=== PATIENT | male | born 1955 | race Caucasian/White ===

== ENCOUNTER 2016-10-18 16:25 | Inpatient (IN) | payer BC ==
[~2016-10-18] VITALS: Ht 188 cm; Wt 128.6 kg
--- NOTE | ~2016-10-18 | ECHO ---
Transthoracic Echocardiography Report (TTE) Demographics Patient Name LAMIN MUÑOZ Date of Study 10/19/2016 Patient Number [id number] Visit Number [id number] Date of 1955 Room Number G6308 Accession Number [id number] Gender Male Age 61 year(s) Referring Megan Retana MD [employer] Paradise Escoto RDCS, Physician RVT Physician Interpreting Dana Cárdenas MD [employer] Physician Supervising Ordering Physician Dana Cárdenas MD, MD/P Nurse Stress Trimming Cutter Conclusions Contractility Score Summary Normal Left Ventricular contractility was noted. Summary The estimated left ventricular ejection fraction is 60%. Mild concentric left ventricular hypertrophy. The right atrium is severely dilated. Dilated IVC with poor inspiratory collapse consistent with elevated RA pressure. Mild tricuspid regurgitation by color Doppler. There is moderate pulmonary hypertension. The pulmonary pressure (RVSP) is 48.87 mmHg. Small to moderate size circumferential pericardial effusion. There is no echocardiographic evidence of cardiac tamponade. Procedure Type of Study TTE procedure:2D Echocardiogram. Procedure Date Date: 10/19/2016 Start: 02:10 PM Study Location: Inpatient Portable Technical Quality: Adequate visualization Indications:Atrial fibrillation. Appropriate Use Criteria: 9 Patient Status: Routine HR: 82 bpm BP: 132/71 mmHg M-Mode/2D Measurements LV Diastolic Dimension: 5.07 cm LV Systolic Dimension: 3.39 cm LV Septum Diastolic: 1 cm LV PW Diastolic: 1.05 cm AO Root Dimension: 3.5 cm Cardiac Output: 5.65 l/min AV Cusp Separation: 2.2 cm RV Diastolic Dimension: 3.77 cm LA volume: 98 ml LVOT: 1.9 cm RV Base: 3.55 cm LVOT VTI: 24.3 cm RV Mid: 2.88 cm LV Stroke volume: 68.86 ml TAPSE: 3.23 cm TDI-S': 19.7 cm/s Doppler Measurements AV Peak Velocity: 1.62 m/s MV Peak E-Wave: 0.07 m/s AV Peak Gradient: 10.5 mmHg MV Peak A-Wave: 0.08 m/s AV Mean Gradient: 7 mmHg MV E/A Ratio: 0.87 LVOT Peak Velocity: 1.18 m/s MV Deceleration Time: 194 msec TR Velocity:2.91 m/s PV Peak Velocity: 1.23 m/s TR Gradient:33.87 mmHg PV Peak Gradient: 6.05 mmHg Estimated RAP:15 mmHg Estimated PASP: 48.87 mmHg Estimated RVSP: 49 mmHg A' Lateral Velocity: 0.12 m/s E' Lateral Velocity: 0.14 m/s Findings Left Ventricle Mild concentric left ventricular hypertrophy. Right Ventricle Mildly dilated right ventricle. Left Atrium The left atrium is moderately dilated. Right Atrium The right atrium is severely dilated. Dilated IVC with poor inspiratory collapse consistent with elevated RA pressure. Mitral Valve Trivial mitral regurgitation by color Doppler. Aortic Valve Normal aortic valve structure and function. Tricuspid Valve Mild tricuspid regurgitation by color Doppler. There is moderate pulmonary hypertension. The pulmonary pressure (RVSP) is 48.87 mmHg. Pulmonic Valve Normal pulmonic valve structure and function. Pericardial Effusion Small posterior pericardial effusion. There is no echocardiographic evidence of cardiac tamponade. Miscellaneous Visualized portions of the aortic root and ascending aorta appear normal in size. Pleural Effusion No evidence of pleural effusion. Contractility Score LV regional wall motion:(0-Non visualized 1-Normal 2-Hypokinesis 3-Akinesis 4-Dyskinesis 5-Aneurysm) Signature dtt: Avi Cortez (cardio) dtd: 10/19/16 1410 Physician Self Edit
--- NOTE | ~2016-10-18 | HP ---
PATIENT'S NAME: LAMIN MUÑOZ [facility] AGE: 61 Y [address] ROOM: [address] [address] LOCATION: GPCU ADMIT DATE: 10/18/2016 History & Physical DISCHARGE DATE: FAMILY PHYSICIAN: Homero Murray MD ATTENDING PHYSICIAN: DENISHA EATON DATE OF SERVICE: ADDENDUM: The D-dimer came back elevated and the patient's right lower extremity is red and swollen and tender. It could be cellulitis but could also be a DVT over there. The elevation of D-dimer also could mean PE. The patient also still remained in atrial fibrillation with RVR, heart rate of 130. Although the patient is asymptomatic, the patient could have a PE, could have a DVT, and run the risk of having a stroke because of the atrial fibrillation with RVR. I have explained to the family member in detail and also to the patient. I spent more than 45 minutes in the room with the family back and forth multiple times to tell them about the option of using anticoagulation agents such as heparin drip or Lovenox subcu. I told them about the benefits and risks, where the risk, the most common one is the bleeding, and could happen anywhere, but the benefit of using the anticoagulation here will be to prevent stroke, to prevent the heart from forming cardiac thrombus leading to embolus, to treat if he had a DVT on the leg, could treat PE if he had it. I explained all these benefits and risks to the family member for long time. While I left the shift last night, the patient's told me that she would like to think about it and talk to the patient and then give answer to the nurse. I came back here today for followup and from the nurse, the patient's family member decided not to go for the heparin drip or Lovenox subcutaneous. Therefore, the patient was put only on the Lovenox subcu for DVT prophylaxis. Today there will be a CT pulmonary angiogram performed to rule PE and also will have a venous duplex ultrasound of the lower extremities to rule out DVT. Further plan will depend on clinical course. DENISHA EATON MD CC/modl /[id number] D: [id number] T: [id number] HISTORY & PHYSICAL
--- NOTE | ~2016-10-18 | HP ---
PATIENT'S NAME: LAMIN MUÑOZ [facility] AGE: 61 Y [address] ROOM: [address] [address] [facility] ADMIT DATE: 10/18/2016 History & Physical DISCHARGE DATE: FAMILY PHYSICIAN: Homero Murray MD ATTENDING PHYSICIAN: DENISHA EATON DATE OF SERVICE: CHIEF COMPLAINT: Right lower extremity swelling, pain, and redness as well as dyspnea on exertion, decreased appetite, nausea, and vomiting. HISTORY OF PRESENT ILLNESS: This is a 61-year-old male who rarely sees a physician, who says that for the last 4 weeks he has been having this pain and swelling and redness in his right lower extremity, and for the last 7 days, he has been feeling chills, but he did not take temperature at home. For the last 4 years, he has been having this shortness of breath initially on exertion; right now, he is also at rest. He also has an itchy spot in his abdomen for the last 2 weeks, and also for the last 2 days, he has been having some nausea and vomiting, and his abdomen, he also says, has been becoming more distended for the last few days, but he denies any abdominal pain or confusion or headache. He is also a chronic alcohol drinker. He drinks about multiple bottles of wine daily for the last 6 years. His last drink was last Tuesday which was 3 days ago. Today, the patient went to GI clinic for evaluation because he had seen a PA in his home town for all this problem and the PA gave him torsemide which he took about 4 days, but it made him urinate a lot, and he did not like it, so he stopped taking that. His last dose was yesterday. Because his symptoms did not improve, he came here today to our hospital to the GI Clinic for evaluation. From GI Clinic due to his multiple medical problems, the patient was sent here for further care. REVIEW OF SYSTEMS: As mentioned in history of present illness. All other systems were reviewed and were negative except for those mentioned in history of present illness. PAST MEDICAL HISTORY: 1. Hyperlipidemia. 2. Hard of hearing bilaterally. ALLERGIES: NO KNOWN DRUG ALLERGIES. HOME MEDICATIONS: 1. Aspirin. PATIENT'S NAME: LAMIN MUÑOZ [facility] AGE: 61 Y [address] ROOM: G6308 [place], [place] [address] [facility] ADMIT DATE: 10/18/2016 History & Physical DISCHARGE DATE: FAMILY PHYSICIAN: Homero Murray MD ATTENDING PHYSICIAN: DENISHA EATON 2. Torsemide. 3. Simvastatin. 4. Unknown dose has to be addressed with the pharmacy. SOCIAL HISTORY: The patient is a former cigarette smoker where he quit about 4 years ago. He used to smoke about 1 pack per day for roughly 30 years. The patient is an active alcohol user. He drinks about multiple bottles of wine daily for the last 6 years. The patient denies any alcohol withdrawal in the past. The patient has used illegal drugs in the past, last time he used was when he was very young. He has been sober since many years ago. He said he has inhaled marijuana, and he might have used cocaine or meth, but he is not sure. FAMILY HISTORY: The patient's father from myocardial infarction at age 63. The patient's mother has dementia and from old age. PAST SURGICAL HISTORY: The patient denies any surgery. PHYSICAL EXAMINATION: VITAL SIGNS: At the time of my dictation, temperature was 98.8, heart rate was 102, respirations 20, blood pressure 153/90, saturation 98%, this was on 1 L nasal cannula. GENERAL APPEARANCE: Alert and oriented x3. The patient looks mildly uncomfortable. The patient looks acutely ill. HEENT: Pupils are equally round and reactive to light. Extraocular muscles are intact. Anicteric sclerae. Nasal turbinates are normal bilaterally. Dry oral mucosa. NECK: No JVD. CARDIOVASCULAR: Irregularly irregular rate. Tachycardic. No murmur, no rubs, no gallops. RESPIRATORY: Clear to auscultation. Chest wall nontender to palpation. No rales, no rhonchi, no wheezing, no crackles. ABDOMEN: Obese, soft, distended, bowel sounds present, nontender. No mass. Bowel sounds are present. No abdominal rigidity. Once again, nontender. EXTREMITIES: No edema in upper or lower extremities. He does have erythema and swelling and pain on palpation on the right lower extremity. SKIN: Erythema in the right lower extremity. No cyanosis. No ulcer. NEUROLOGICAL: Grossly nonfocal. LABORATORY DATA: Lactic acid 3.3, CPK 385. Troponin less than 0.04. ProBNP 582. White blood cell 12.3, hemoglobin 13.2, hematocrit 38, MCV 101.6, platelets 197. Glucose 113, BUN 10, creatinine 1.3. Sodium 136, potassium 3.1, chloride 94, CO2 of PATIENT'S NAME: LAMIN MUÑOZ [facility] AGE: 61 Y [address] ROOM: [place] [address] LOCATION: GPCU ADMIT DATE: 10/18/2016 History & Physical DISCHARGE DATE: FAMILY PHYSICIAN: Homero Murray MD ATTENDING PHYSICIAN: DENISHA EATON 29, calcium 8.0, total protein 8.5, albumin 2.9. AST 170, ALT 35, alkaline phosphatase 303. Total bilirubin 4.0, direct bilirubin 1.5. Magnesium 1.3. GFR of 56, anion gap 16.1. INR 1.33, PTT 31. A1c pending. Urinalysis show 25 leukocytes, negative nitrite, rare bacteria and 2-5 white blood cells. CK- MB 1.3. Procalcitonin 0.41. D-dimer is pending. IMAGING STUDY: Chest x-ray on admission show normal chest x-ray. PROGRESSIVE CARE UNIT COURSE: Upon arrival to the progressive care unit, the patient developed atrial fibrillation with rapid ventricular response. Heart rate was in the 180s, blood pressure was in the 140s systolic. The patient denies any chest pain. Chronically, he has a little bit of shortness of breath, but this has not worsened right now. No confusion. The patient was given Cardizem bolus followed by drip. Also required a few doses of IV Lopressor push 5 mg. Heart rate remained in the 120s. Blood pressure is still in the 140s. The patient still denies any chest pain. For followup plan, please refer to the assessment and plan. ASSESSMENT AND PLAN: 1. Regarding his sepsis secondary to right lower extremity cellulitis: Blood culture x2. Urine culture. Antibiotic coverage with IV Linezolid and also IV Zosyn. Start now, dosing per pharmacy. Pain control with IV morphine p.r.n. Further plan depends on clinical course. I will also get a venous duplex ultrasound to rule out a deep venous thrombosis. I ordered the D-dimer, is pending. If it is high, can get a CT pulmonary angiogram to confirm pulmonary embolism. If it is negative, then worry about DVT in that leg, then I will give him empirically subcu Lovenox twice a day for coverage until deep venous thrombosis is ruled out. Further plan will depend on clinical course. 2. Regarding his atrial fibrillation with rapid ventricular response, secondary to sepsis from right lower extremity cellulitis: Continue current Cardizem drip. Normal saline for hydration in the setting of sepsis with a normal saline at 75 mL/hour maintenance. I will watch his vital signs closely. I will get an echo in the morning. Cycle cardiac enzymes. Consult Cardiology in the morning for atrial fibrillation with rapid ventricular response management. 3. Regarding his transaminitis: I will get a complete abdominal ultrasound in the morning to evaluate the liver. In addition, I will check a hepatitis B and C panel. I will also check ammonia level. Depending on the ultrasound finding, GI can be consulted. The patient is a heavy alcohol drinker. He may require EGD to screen for varices. 4. Regarding his dyspnea: The patient is not hypoxic on room air. He is saturating more than 94% on room air. Chest x-ray looks clean. This PATIENT'S NAME: LAMIN MUÑOZ [facility] AGE: 61 Y [address] ROOM: [place] [address] LOC[facility] ADMIT DATE: 10/18/2016 History & Physical DISCHARGE DATE: FAMILY PHYSICIAN: Homero Murray MD ATTENDING PHYSICIAN: DENISHA EATON could be from pulmonary hypertension or from being a smoker or from obstructive sleep apnea or from some degree of heart failure from the pulmonary hypertension from cor pulmonale. Either way, keeping on the oxygen right now and also nasal cannula if needed and also get an echo tomorrow for better evaluation. 5. Regarding his alcohol use disorder with a high risk of alcohol withdrawal: The patient is currently withdrawing with asterixis on examination. I will start on the CIWA protocol. 6. Regarding his deep venous thrombosis prophylaxis: The patient currently will be on subcu Lovenox. 7. Regarding his code status: He is a full code. Time spent in care on the day of admission 70 minutes where 30 minutes was spent on chart review and interview and also on the physical examination. 40 minutes was spent on calling the on-call cardiology for the consult tomorrow and also by addressing all the questions and concerns that the patient had and also by going over the plan of care with the patient and his family members, and I answered all the questions to their satisfaction. This also includes a time in care for the control of the atrial fibrillation with RVR. Further plan will depend on clinical course. MD CARMELA CAMARENA/paul /[id number] P D: 155 T: 049 HISTORY & PHYSICAL
--- NOTE | ~2016-10-18 | DS ---
PATIENT'S NAME: LAMIN MUÑOZ [facility] AGE: 61 Y [address] ROOM: [address] [address] LOCATION: GPCU ADMIT DATE: 10/18/2016 Discharge Summary DISCHARGE DATE: 10/24/2016 FAMILY PHYSICIAN: Homero Murray MD ATTENDING PHYSICIAN: Denis Guzman PRINCIPAL DIAGNOSES: 1. Atrial fibrillation with rapid ventricular rate. 2. Acute hypoxic respiratory failure. 3. Diastolic congestive heart failure, decompensated. 4. Pulmonary hypertension. 5. Lower extremity cellulitis. 6. Chronic liver disease. 7. Alcohol abuse. BRIEF HOSPITAL COURSE: Please refer to the admission H and P for a detailed history on an initial presentation. The patient admitted for evaluation and workup of AFib/RVR as well as sepsis from right lower extremity cellulitis. The patient was seen by Cardiology Service promptly and medications were titrated to better rate control and rhythm control. The patient throughout his hospital stay had mostly maintained a sinus rhythm with a controlled rate. The patient also had concern for chronic liver disease and was evaluated by Gastroenterology team and workup included a possible diagnosis of hemochromatosis with transferrin saturation of 73% noted on preliminary work. Final genetic testing is pending. The patient is to follow up with GI Clinic for continued workup of his liver disease. In addition, the patient was found to have shortness of breath symptoms and an echocardiogram showed significant pulmonary hypertension which was deemed to be decompensated diastolic CHF and was diuresed during his hospital stay with significant improvement with his hypoxic respiratory failure, and the patient is on room air during the daytime. The patient also has an overnight trend ox and for that the patient would need 2 L of oxygen per nasal cannula overnight for now. The patient will be discharged on Lasix p.o. 40 mg from here on and he will follow up with Cardiology, Dr. Cortez's office, in 2 weeks. The patient had been started on intermediate frame tender anticoagulation with Xarelto as well. The patient had a CT scan of the chest, abdomen, and pelvis done, which did not show significant findings including gross signs of scarring in the liver to suggest cirrhosis. PHYSICAL EXAMINATION: VITAL SIGNS: Stable. Afebrile. GENERAL: The patient is awake, alert, and oriented x3, in no acute distress. LUNGS: Clear to auscultation bilaterally. HEART: S2, S2, regular rate and rhythm. ABDOMEN: Soft, nontender, nondistended. EXTREMITIES: Without edema. Right lower extremity edema significantly improved. PATIENT'S NAME: LAMIN MUÑOZ [facility] AGE: 61 Y [address] ROOM: [address] [address] LOCATION: GPCU ADMIT DATE: 10/18/2016 Discharge Summary DISCHARGE DATE: 10/24/2016 FAMILY PHYSICIAN: Homero Murray MD ATTENDING PHYSICIAN: Denis Guzman MEDICATIONS: Per MAR includin. Xarelto 20 mg daily. 2. Keflex 500 b.i.d. for 4 more days. 3. Lasix 40 mg p.o. daily. 4. Sotalol 80 mg b.i.d. 5. Cardizem 120 mg daily. DISPOSITION: The patient is discharged home, he will follow up with GI, Cardiology, and primary care physician in the next 1 to 2 weeks. Greater than 30 minutes were spent in discharge planning and facilitating. MD JAYME NAVARRETE/paul /[id number] d: 10/25/16 0104 t: 11/01/16 1510, DISCHARGE SUMMARY
--- NOTE | ~2016-10-18 | ENPV ---
Vascular Lower Extremities DVT Study Procedure Demographics Patient Name LAMIN MUÑOZ Date of Study 10/19/2016 Patient Number [id number] Gender Male Date of 1955 Age 61 Visit Number [id number] Height 74 Accession Number [id number] Weight 267.01 Referring Terri Howell MD Physician Megan Retana MD Physician Physician Ordering Physician Megan Retana MD [employer] Payable Administrator Odilon Jeffrey, T Conclusions Summary No evidence of deep vein thrombosis in bilateral lower extremities. Procedure Type of Study: Veins:Lower Extremities DVT Study, Venous Duplex Lower Extremity Bilateral. Indications for Study:Pain, edema, discoloration and Bilateral lower extremity edema. Appropriate Use Criteria:8 Patient Status:Routine. Study Location:Inpatient Portable. Technical Quality:Adequate visualization. Velocities are measured in cm/s ; Diameters are measured in cm Right Lower Extremities DVT Study Measurements Right 2D and Doppler Measurements + + + + +------+------+ + !Location !Visualized!Compressibility!Thrombosis!Signal!Reflux!Reflux ! ! ! ! ! ! ! !(sec) ! + + + + +------+------+ + !GSV Thigh !Yes !Yes !None !Phasic!No ! ! + + + + +------+------+ + !Common !Yes !Yes !None !Phasic!No ! ! !Femoral ! ! ! ! ! ! ! + + + + +------+------+ + !Prox !Yes !Yes !None !Phasic!No ! ! !Femoral ! ! ! ! ! ! ! + + + + +------+------+ + !Mid Femoral!Yes !Yes !None !Phasic!No ! ! + + + + +------+------+ + !Dist !Yes !Yes !None !Phasic!No ! ! !Femoral ! ! ! ! ! ! ! + + + + +------+------+ + !Popliteal !Yes !Yes !None !Phasic!No ! ! + + + + +------+------+ + !Gastroc !Yes !Yes !None ! ! ! ! + + + + +------+------+ + !PTV !Yes !Yes !None ! ! ! ! + + + + +------+------+ + !Peroneal !Yes !Yes !None ! ! ! ! + + + + +------+------+ + Left Lower Extremities DVT Study Measurements Left 2D and Doppler Measurements + + + + +------+------+ + !Location !Visualized!Compressibility!Thrombosis!Signal!Reflux!Reflux ! ! ! ! ! ! ! !(sec) ! + + + + +------+------+ + !GSV Thigh !Yes !Yes !None !Phasic!No ! ! + + + + +------+------+ + !Common !Yes !Yes !None !Phasic!No ! ! !Femoral ! ! ! ! ! ! ! + + + + +------+------+ + !Prox !Yes !Yes !None !Phasic!No ! ! !Femoral ! ! ! ! ! ! ! + + + + +------+------+ + !Mid Femoral!Yes !Yes !None !Phasic!No ! ! + + + + +------+------+ + !Dist !Yes !Yes !None !Phasic!No ! ! !Femoral ! ! ! ! ! ! ! + + + + +------+------+ + !Popliteal !Yes !Yes !None !Phasic!No ! ! + + + + +------+------+ + !Gastroc !Yes !Yes !None ! ! ! ! + + + + +------+------+ + !PTV !Yes !Yes !None ! ! ! ! + + + + +------+------+ + !Peroneal !Yes !Yes !None ! ! ! ! + + + + +------+------+ + Signature dtt: SUMIT MARIN dtd: 10/19/16 0729 Physician Self Maria Elena
--- NOTE | ~2016-10-18 | PUL ---
PATIENT'S NAME: LAMIN MUÑOZ [facility] AGE: 61 Y [address] ROOM: [address] [address] LOCATION: GPCU ADMIT DATE: 10/18/2016 Pulmonary DISCHARGE DATE: 10/24/2016 FAMILY PHYSICIAN: Homero Murray MD ATTENDING PHYSICIAN: Denis Guzman NAME OF PROCEDURE: Overnight Trend Oximetry DATE OF PROCEDURE: October 23 to October 24, 2016 REASON FOR EXAM: Nocturnal hypoxemia RESULTS: The total recording time was 8 hours, 48 minutes, and 4 seconds. Total valid sampling time was 8 hours and 20 minutes. The highest pulse was 132 beats per minute, the lowest pulse was 58, and the mean pulse was 63 beats per minute. The highest SpO2 was 94%, the lowest SpO2 was 80%, with mean SpO2 of 87.5%. Time total time spent below 89% was 5 hours 29 minutes and 16 seconds which is 65. 9% of the total valid sampling time. The desaturation event index was 13.3. PHYSICIAN INTERPRETATION: The patient meets Medicare criteria for nighttime oxygen. The index is 13.3, which is could be indicative of obstructive sleep apnea. Clinical correlation is recommended. MD JUAN OLSON/rob /[id number] dtt: 10/31/16 0910 , Luis Manuel Calderon. dtd: 10/28/16 1412
--- NOTE | ~2016-10-18 | CON ---
PATIENT'S NAME: LAMIN MUÑOZ [facility] AGE: 61 Y [address] ROOM: [place] [address] LOCATION: GPCU ADMIT DATE: 10/18/2016 Consultation DISCHARGE DATE: FAMILY PHYSICIAN: Homero Murray MD ATTENDING PHYSICIAN: DENISHA EATON DATE OF CONSULTATION: 10/19/2016 REFERRING PHYSICIAN: Avi Cortez MD HISTORY OF PRESENT ILLNESS: This is a 61-year-old gentleman, who was admitted with an elevated D-dimer and right lower extremity cellulitis. He also was noted to be in atrial fibrillation with rapid ventricular response. He had been feeling poorly over the past several days with a decreased appetite, right leg cellulitis, and increased edema. On admission, his lactate was 3.3 and direct bilirubin was 1.8 with an indirect bilirubin of 12.9. He was also found to have an elevated ammonia level. He had a CT done, which was negative for PE, but he did have nodular appearances noted on his spleen with other small nodularities in the abdomen. An ultrasound of the abdomen showed that he had a fatty liver and his gallbladder had sludge. He does have a history of chronic alcohol drinker with multiple bottles of wine daily for the past six years. He reports his last drink was three days ago. He currently denies feeling any palpitations. He does not have a history of paroxysmal atrial fibrillation, so this is a new diagnosis. He complains of some intermittent shortness of breath. He denies presyncope or syncopal episodes. He denies orthopnea or PND. His reports that he does snore loudly, and sometimes stops breathing. There is no report of exertional chest heaviness or tightness. PAST MEDICAL HISTORY: 1. Hypercholesterolemia. 2. Arthritis of the hands. 3. Macular degeneration. 4. Glaucoma. 5. New diagnosis of cirrhosis. 6. Pulmonary hypertension. 7. Alcohol abuse. 8. Remote history of smoking. PAST SURGICAL HISTORY: None. ALLERGIES: NONE TO MEDICATION. HOME MEDICATIONS: PATIENT'S NAME: LAMIN MUÑOZ [facility] AGE: 61 Y [address] ROOM: [place] [address] LOCATION: GPCU ADMIT DATE: 10/18/2016 Consultation DISCHARGE DATE: FAMILY PHYSICIAN: Homero Murray MD ATTENDING PHYSICIAN: DENISHA EATON 1. Aspirin 325 mg daily. 2. Lutein 20 mg daily. 3. Simvastatin 40 mg daily. 4. Demadex 20 mg daily. SOCIAL HISTORY: He is . He quit smoking in 2012. He had smoked over a pack of cigarettes a day for 30 years. FAMILY HISTORY: Father had myocardial infarction at the age of 63. Mother had dementia. REVIEW OF SYSTEMS: HEAD: No history of headache. EYES: He has problems with macular degeneration and glaucoma. EARS: It appears he is a little hard of hearing. NOSE: No epistaxis or rhinorrhea. MOUTH: No gingival bleeding. He has a full set of dentures. PULMONARY: He denies cough or hemoptysis. GASTROINTESTINAL: He has upper abdominal hernia. No problems with nausea or vomiting. GENITOURINARY: Negative for urinary frequency unless he is taking Demadex. MUSCULOSKELETAL: He has arthritis of the hands. NEUROLOGIC: He denies neuropathy. PSYCHIATRIC: He does have problems with depression. He does use alcohol chronically. PHYSICAL EXAMINATION: VITAL SIGNS: Blood pressure is 106/53 to 124/65, heart rate now is 87 and he is in a regular sinus rhythm, and temperature is 98.6. His height is 6 feet 2 inches tall and weight is 267 pounds. GENERAL: He is alert and answers questions appropriately. HEENT: Pupils were equal. Conjunctiva is reddened. He has symmetrical facial expression. His speech is clear. CARDIOVASCULAR: Regular with a normal S1 and S2. No carotid bruits were noted. PULMONARY: Lung sounds were clear without evidence of wheezes, rales, or rhonchi. ABDOMEN: Rounded and obese, but soft. Bowel sounds are present. EXTREMITIES: Showed trace of peripheral edema. Right leg is wrapped currently. DIAGNOSTIC STUDIES: Telemetry is showing non-sustained ventricular tachycardia and paroxysmal atrial fibrillation. PATIENT'S NAME: LAMIN MUÑOZ [facility] AGE: 61 Y [address] ROOM: [address] [address] [facility] ADMIT DATE: 10/18/2016 Consultation DISCHARGE DATE: FAMILY PHYSICIAN: Homero Murray MD ATTENDING PHYSICIAN: DENISHA EATON LABORATORY DATA: Ammonia was 77. Cardiac enzymes are negative. White count is 12.6, hemoglobin is 12.6, and platelets are 183. Glucose was 124, BUN was 11, creatinine was 1.2, sodium was 138, potassium was 3.1, magnesium was 1.9, and hemoglobin A1c was 5.4. Cholesterol of 164, triglycerides of 156, HDL of 33, and LDL of 100. UA is normal except for urobilinogen, is 4. ASSESSMENT AND PLAN: 1. Paroxysmal atrial fibrillation, now in a normal sinus rhythm. We will await the echocardiogram to see what his EF is. At that time, we will decide what antiarrhythmic to start. 2. Hypokalemia with non-sustained ventricular tachycardia. We will replace with electrolytes. 3. Cellulitis per hospitalist. 4. Fatigue with chronic snoring. We will see what his pulmonary pressures are. The assessment and plan, history of present illness, and physical exam are per Dr. Cortez. JUANCARLOS GARCIA APRN FOR MD STEVEN NEVAREZ/modl /[id number] d: 10/21/162056 t: 11/03/160, CONSULTATION REPORT
[2016-10-18 17:37] LABS: BASOPHIL # 0.1 K/uL (0.0-0.2); BASOPHIL % 0.5 %; HEMOGLOBIN 13.2 g/dL (11.0-16.0); IMMATURE GRANULOCYTE % 0.3 %; LYMPHOCYTE # 1.7 K/uL (0.8-4.0); LYMPHOCYTE % 14.2 %; MCH 35.3 pg (27.0-34.0); MCHC 34.7 gm/dL (32.0-36.5); MCV 101.6 fl (83.0-98.0); MONOCYTE # 1.2 K/uL (0.0-1.0); MPV 10.2 fl (9.4-12.4); NEUTROPHIL # (ANC) 9.2 K/uL (1.4-9.0); NRBC % 0 /100WBC (0-0.00); PLATELET COUNT 197 K/uL (150-450); RBC 3.74 M/uL (3.50-5.50); RDW-CV 15.4 % (11.9-14.6); WBC 12.3 K/uL (4.0-11.0)
[2016-10-18] MEDS ORDERED: ASPIRIN325 MG PO (17:41)
[2016-10-18] MEDS ORDERED: ZOCOR40 MG PO (17:42)
[2016-10-18 17:44] LABS: INR - (THERAPEUTIC) 1.33 (0.92-1.07); PTT 31 SECONDS (25-32)
[2016-10-18 17:56] LABS: BLOOD URINE NEGATIVE /UL (NEGATIVE); COLOR URINE YELLOW (YELLOW); GLUCOSE URINE NEGATIVE (NEGATIVE); KETONE URINE NEGATIVE (NEGATIVE); LEUKOCYTES URINE 25 /UL (NEGATIVE); NITRITE URINE NEGATIVE (NEGATIVE); PROTEIN URINE NEGATIVE (NEGATIVE); TURBIDITY URINE CLEAR (CLEAR); UROBILINOGEN URINE 4 mg/dL (NORMAL)
[2016-10-18 18:00] LABS: ALBUMIN 2.9 gm/dL (3.5-5.0); ALK PHOS 303 IU/L (33-138); ALT 35 IU/L (12-78); ANION GAP 16.1 (10.0-19.0); AST 170 IU/L (10-40); BLOOD UREA NITROGEN 10 mg/dL (6-24); CHLORIDE 94 mMol/L (96-110); CO2 29 mMol/L (22-32); CPK 385 IU/L (35-332); CREATININE 1.3 mg/dL (0.6-1.3); ESTIMATED GFR (MDRD EQUATION) 56; MAGNESIUM 1.3 mg/dL (1.8-2.6); POTASSIUM 3.1 mMol/L (3.7-5.1); SODIUM 136 mMol/L (135-145); TOTAL PROTEIN 8.5 g/dL (6.0-8.4)
[2016-10-18 18:05] LABS: BACTERIA URINE RARE (NEGATIVE); EPITHELIAL URINE 0-2 #/HPF (NEGATIVE); RBC URINE NEGATIVE #/HPF (NEGATIVE)
[2016-10-18 21:19] LABS: CPK 432 IU/L (35-332)
[2016-10-19 02:21] LABS: HEMATOCRIT 36.2 % (37.0-53.0); HEMOGLOBIN 12.6 g/dL (11.0-16.0); MCH 35.6 pg (27.0-34.0); MCHC 34.8 gm/dL (32.0-36.5); MCV 102.3 fl (83.0-98.0); MPV 10.2 fl (9.4-12.4); RBC 3.54 M/uL (3.50-5.50); RDW-CV 15.4 % (11.9-14.6); WBC 12.6 K/uL (4.0-11.0)
[2016-10-19 02:31] LABS: INR - (THERAPEUTIC) 1.34 (0.92-1.07); PROTIME 14.1 SECONDS (9.8-11.4)
[2016-10-19 02:39] LABS: CPK 426 IU/L (35-332)
[2016-10-19 03:25] LABS: ALBUMIN 2.7 gm/dL (3.5-5.0); ALK PHOS 271 IU/L (33-138); ALT 28 IU/L (12-78); ANION GAP 12.1 (10.0-19.0); AST 140 IU/L (10-40); BLOOD UREA NITROGEN 11 mg/dL (6-24); CHLORIDE 99 mMol/L (96-110); CO2 30 mMol/L (22-32); CREATININE 1.2 mg/dL (0.6-1.3); ESTIMATED GFR (MDRD EQUATION) > 60; POTASSIUM 3.1 mMol/L (3.7-5.1); SODIUM 138 mMol/L (135-145); TOTAL BILIRUBIN 4.7 mg/dL (0.0-1.5); TOTAL PROTEIN 7.9 g/dL (6.0-8.4)
[2016-10-19 09:37] LABS: CPK 420 IU/L (35-332)
[2016-10-20 04:36] LABS: BASOPHIL # 0.1 K/uL (0.0-0.2); BASOPHIL % 0.6 %; EOSINOPHIL # 0.1 K/uL (0.0-0.5); EOSINOPHIL % 0.6 %; HEMATOCRIT 34.5 % (37.0-53.0); HEMOGLOBIN 11.6 g/dL (11.0-16.0); IMMATURE GRANULOCYTE % 0.4 %; LYMPHOCYTE # 1.9 K/uL (0.8-4.0); LYMPHOCYTE % 16.9 %; MCH 34.9 pg (27.0-34.0); MCHC 33.6 gm/dL (32.0-36.5); MCV 103.9 fl (83.0-98.0); MONOCYTE # 0.7 K/uL (0.0-1.0); MONOCYTE % 6.5 %; MPV 10.4 fl (9.4-12.4); NEUTROPHIL # (ANC) 8.6 K/uL (1.4-9.0); NRBC % 0 /100WBC (0-0.00); PLATELET COUNT 158 K/uL (150-450); RBC 3.32 M/uL (3.50-5.50); RDW-CV 15.3 % (11.9-14.6); WBC 11.4 K/uL (4.0-11.0)
[2016-10-20 05:01] LABS: ALBUMIN 2.5 gm/dL (3.5-5.0); ALK PHOS 251 IU/L (33-138); ANION GAP 10.1 (10.0-19.0); AST 131 IU/L (10-40); BLOOD UREA NITROGEN 13 mg/dL (6-24); CALCIUM 7.8 mg/dL (8.5-10.5); CHLORIDE 103 mMol/L (96-110); CO2 28 mMol/L (22-32); CREATININE 0.9 mg/dL (0.6-1.3); ESTIMATED GFR (MDRD EQUATION) > 60; MAGNESIUM 1.9 mg/dL (1.8-2.6); POTASSIUM 3.1 mMol/L (3.7-5.1); SODIUM 138 mMol/L (135-145); TOTAL BILIRUBIN 5.3 mg/dL (0.0-1.5); TOTAL PROTEIN 7.4 g/dL (6.0-8.4)
[2016-10-20 05:09] LABS: ALT 29 IU/L (12-78)
[2016-10-21 03:54] LABS: BASOPHIL # 0.1 K/uL (0.0-0.2); BASOPHIL % 0.7 %; EOSINOPHIL # 0.1 K/uL (0.0-0.5); EOSINOPHIL % 1.3 %; HEMOGLOBIN 11.4 g/dL (11.0-16.0); IMMATURE GRANULOCYTE % 0.4 %; LYMPHOCYTE % 17.9 %; MCH 35.2 pg (27.0-34.0); MCHC 33.5 gm/dL (32.0-36.5); MCV 104.9 fl (83.0-98.0); MONOCYTE # 0.8 K/uL (0.0-1.0); MONOCYTE % 7.2 %; MPV 10.6 fl (9.4-12.4); NEUTROPHIL % 72.5 %; NRBC % 0 /100WBC (0-0.00); PLATELET COUNT 154 K/uL (150-450); RBC 3.24 M/uL (3.50-5.50); RDW-CV 15.1 % (11.9-14.6)
[2016-10-21 04:10] LABS: ALBUMIN 2.4 gm/dL (3.5-5.0); ALK PHOS 219 IU/L (33-138); ALT 30 IU/L (12-78); ANION GAP 10.3 (10.0-19.0); AST 121 IU/L (10-40); BLOOD UREA NITROGEN 17 mg/dL (6-24); CALCIUM 7.8 mg/dL (8.5-10.5); CHLORIDE 104 mMol/L (96-110); CO2 26 mMol/L (22-32); ESTIMATED GFR (MDRD EQUATION) > 60; POTASSIUM 3.3 mMol/L (3.7-5.1); SODIUM 137 mMol/L (135-145); TOTAL BILIRUBIN 4.6 mg/dL (0.0-1.5); TOTAL PROTEIN 7.1 g/dL (6.0-8.4)
[2016-10-22 04:05] LABS: BASOPHIL # 0.1 K/uL (0.0-0.2); BASOPHIL % 0.5 %; EOSINOPHIL # 0.1 K/uL (0.0-0.5); EOSINOPHIL % 1.2 %; HEMATOCRIT 34.3 % (37.0-53.0); HEMOGLOBIN 11.6 g/dL (11.0-16.0); IMMATURE GRANULOCYTE % 0.4 %; LYMPHOCYTE # 1.8 K/uL (0.8-4.0); LYMPHOCYTE % 15.6 %; MCH 35.9 pg (27.0-34.0); MCHC 33.8 gm/dL (32.0-36.5); MCV 106.2 fl (83.0-98.0); MONOCYTE # 0.8 K/uL (0.0-1.0); MPV 10.7 fl (9.4-12.4); NEUTROPHIL # (ANC) 8.6 K/uL (1.4-9.0); NEUTROPHIL % 75.3 %; NRBC % 0.2 /100WBC (0-0.00); PLATELET COUNT 148 K/uL (150-450); RBC 3.23 M/uL (3.50-5.50); RDW-CV 15.3 % (11.9-14.6); WBC 11.4 K/uL (4.0-11.0)
[2016-10-22 04:16] LABS: ALBUMIN 2.6 gm/dL (3.5-5.0); ALK PHOS 227 IU/L (33-138); ALT 43 IU/L (12-78); ANION GAP 11.9 (10.0-19.0); AST 144 IU/L (10-40); BLOOD UREA NITROGEN 23 mg/dL (6-24); CALCIUM 8.3 mg/dL (8.5-10.5); CHLORIDE 102 mMol/L (96-110); CO2 26 mMol/L (22-32); CREATININE 1.2 mg/dL (0.6-1.3); ESTIMATED GFR (MDRD EQUATION) > 60; MAGNESIUM 2.1 mg/dL (1.8-2.6); POTASSIUM 3.9 mMol/L (3.7-5.1); SODIUM 136 mMol/L (135-145); TOTAL PROTEIN 7.8 g/dL (6.0-8.4)
[2016-10-23 03:27] LABS: BASOPHIL % 0.5 %; EOSINOPHIL # 0.2 K/uL (0.0-0.5); EOSINOPHIL % 1.7 %; IMMATURE GRANULOCYTE % 0.3 %; LYMPHOCYTE # 1.8 K/uL (0.8-4.0); LYMPHOCYTE % 20.9 %; MCH 35.4 pg (27.0-34.0); MCHC 33.3 gm/dL (32.0-36.5); MCV 106.1 fl (83.0-98.0); MONOCYTE # 0.7 K/uL (0.0-1.0); MONOCYTE % 8.3 %; MPV 10.4 fl (9.4-12.4); NEUTROPHIL % 68.3 %; NRBC % 0 /100WBC (0-0.00); PLATELET COUNT 145 K/uL (150-450); RBC 3.11 M/uL (3.50-5.50); RDW-CV 15.1 % (11.9-14.6); WBC 8.8 K/uL (4.0-11.0)
[2016-10-23 03:56] LABS: ALBUMIN 2.7 gm/dL (3.5-5.0); ALK PHOS 215 IU/L (33-138); ALT 46 IU/L (12-78); ANION GAP 12.9 (10.0-19.0); AST 144 IU/L (10-40); BLOOD UREA NITROGEN 25 mg/dL (6-24); CALCIUM 8.2 mg/dL (8.5-10.5); CHLORIDE 100 mMol/L (96-110); CO2 26 mMol/L (22-32); CREATININE 1.1 mg/dL (0.6-1.3); ESTIMATED GFR (MDRD EQUATION) > 60; POTASSIUM 3.9 mMol/L (3.7-5.1); SODIUM 135 mMol/L (135-145); TOTAL BILIRUBIN 3.8 mg/dL (0.0-1.5); TOTAL PROTEIN 7.6 g/dL (6.0-8.4)
[2016-10-24 06:26] LABS: BASOPHIL # 0.1 K/uL (0.0-0.2); BASOPHIL % 0.6 %; EOSINOPHIL # 0.1 K/uL (0.0-0.5); EOSINOPHIL % 1.5 %; HEMOGLOBIN 10.7 g/dL (11.0-16.0); IMMATURE GRANULOCYTE # 0.1 K/uL (0.0-0.3); IMMATURE GRANULOCYTE % 0.6 %; LYMPHOCYTE # 1.8 K/uL (0.8-4.0); LYMPHOCYTE % 20.4 %; MCH 35.2 pg (27.0-34.0); MCHC 33.4 gm/dL (32.0-36.5); MCV 105.3 fl (83.0-98.0); MONOCYTE # 0.9 K/uL (0.0-1.0); MONOCYTE % 10.4 %; MPV 9.8 fl (9.4-12.4); NEUTROPHIL # (ANC) 5.7 K/uL (1.4-9.0); NEUTROPHIL % 66.5 %; NRBC % 0 /100WBC (0-0.00); PLATELET COUNT 134 K/uL (150-450); RBC 3.04 M/uL (3.50-5.50); RDW-CV 15.1 % (11.9-14.6); WBC 8.6 K/uL (4.0-11.0)
[2016-10-24 06:45] LABS: ALBUMIN 2.5 gm/dL (3.5-5.0); ALK PHOS 191 IU/L (33-138); ALT 46 IU/L (12-78); ANION GAP 11.5 (10.0-19.0); AST 130 IU/L (10-40); BLOOD UREA NITROGEN 30 mg/dL (6-24); CALCIUM 8.2 mg/dL (8.5-10.5); CHLORIDE 100 mMol/L (96-110); CO2 27 mMol/L (22-32); CREATININE 1.2 mg/dL (0.6-1.3); ESTIMATED GFR (MDRD EQUATION) > 60; POTASSIUM 3.5 mMol/L (3.7-5.1); SODIUM 135 mMol/L (135-145); TOTAL BILIRUBIN 3.7 mg/dL (0.0-1.5); TOTAL PROTEIN 7.5 g/dL (6.0-8.4)
[2016-10-24] MEDS ORDERED: KEFLEX500 MG PO (12:00)
[2016-10-24] MEDS ORDERED: CARDIZEM CD (T120 MG PO (12:01)
[2016-10-24] MEDS ORDERED: FOLIC ACID1 MG PO (12:02)
[2016-10-24] MEDS ORDERED: XARELTO20 MG PO (12:03)
[2016-10-24] MEDS ORDERED: PROTONIX40 MG PO (12:03)
[2016-10-24] MEDS ORDERED: BETAPACE (GENER80 MG PO (12:04)
[2016-10-24] MEDS ORDERED: LASIX40 MG PO (12:05)
[2016-10-24] MEDS ORDERED: THIAMINE HCL100 MG PO (12:05)
[2016-12-01] MEDS ORDERED: LASIX40 MG PO (10:05)
[2016-12-31] MEDS ORDERED: XIFAXAN550 MG PO (16:00)
[2016-12-31] MEDS ORDERED: K-TAB ER20 MEQ PO (16:01)
[2016-12-31] MEDS ORDERED: XARELTO20 MG PO (16:01)
[2016-12-31] MEDS ORDERED: ZOCOR40 MG PO (16:03)
[2017-01-04] MEDS ORDERED: FEOSOL325 MG PO (10:40)
== END 2016-10-24 15:45 | disposition disaster alternative care site (69) | DRG 871 ==
LOC: GPCU 16:25
PROVIDERS: Internal Medicine; ADMIT Internal Medicine
PROC: 3E0F7GC Introduction of Other Therapeutic Substance into Respiratory Tract, Via Natural or Artificial Opening (ICD-10-PCS; principal; 2016-10-23)
DX: A41.9 Sepsis, unspecified organism (principal); I50.33 Acute on chronic diastolic (congestive) heart failure; J96.01 Acute respiratory failure with hypoxia; F10.239 Alcohol dependence with withdrawal, unspecified; L03.115 Cellulitis of right lower limb; Z23 Encounter for immunization; E78.5 Hyperlipidemia, unspecified; E87.6 Hypokalemia; G47.33 Obstructive sleep apnea (adult) (pediatric); I27.2 Other secondary pulmonary hypertension; I48.0 Paroxysmal atrial fibrillation; K70.30 Alcoholic cirrhosis of liver without ascites
CPT/HCPCS: C9113; J0153; J1650; J1940; J2020; J2543; J3411; J3475; J3480; J7030; J7040; J7050; Q9967

== ENCOUNTER 2016-11-15 17:30 | Inpatient (IN) | payer BC ==
[~2016-11-15] VITALS: Ht 182.9 cm; Wt 122.5 kg
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
--- NOTE | ~2016-11-15 | DS ---
PATIENT'S NAME: LAMIN MUÑOZ [facility] AGE: 61 Y [address] ROOM: [address] [address] [place] [facility] [place] DATE: 11/15/2016 Discharge Summary DISCHARGE DATE: 11/18/2016 FAMILY PHYSICIAN: Homero Murray MD ATTENDING PHYSICIAN: Antonio Fink PRINCIPAL DIAGNOSES: 1. Anasarca. 2. Edimx-sd-yzhnsel diastolic congestive heart failure. 3. Decompensated liver cirrhosis. 4. Hypokalemia. 5. Paroxysmal atrial fibrillation, long-term anticoagulation, Xarelto on hold. 6. Hypothyroidism. 7. Nocturnal hypoxemia. 8. History of alcohol abuse. 9. Ascites. HOSPITAL COURSE: Please see the admitting data as dictated by Dr. Antonio Fink. This is a 61-year-old male with a history of alcoholic liver disease and diastolic congestive heart failure who presented to the clinic for followup, where he was found to be dyspneic and shortness of breath with a significant weight gain of greater than 10 pounds. He was admitted into the hospital setting. His oral diuretics were changed to IV Bumex. He was placed on a fluid restriction and appropriate diet. He was given aggressive diuretic therapies and monitored of his renal function. He had a good adequate output within the first 24-hours of nearly 4 liters. We continued the diuresis through the next day intravenously and again had 5700 out for the next giving him a total of nearly 8000 mL off in a 48 hour period. There was some initial concern about some ascites; however, follow up abdominal ultrasound after diuresis did not show any significant ascites. A CT of the abdomen and pelvis showed only a small amount of free abdominal fluid. The patient did have significant lower extremity edema and did improve with diuretic therapy. Wound nurses were asked to evaluate and the patient was placed in Unna boots appropriately. He was then transitioned to oral Lasix and Aldactone with good results. He did not have any compromise of his renal function. He did require some potassium supplementation. He had significant improvement over his abdominal distention and lower extremity edema over the course of his stay. Consultations occurred with both Cardiology and Gastroenterology. The patient was also found to be hypothyroid with a TSH of greater than 10 in the clinic; so, Cardiology did start a low-dose Synthroid, which the patient tolerated well and will require follow up of a TSH in 6 weeks. PATIENT'S NAME: LAMIN MUÑOZ [facility] AGE: 61 Y [address] ROOM: [id number] [place], [place] [id number] LOCATION: [facility] [place] DATE: 11/15/2016 Discharge Summary DISCHARGE DATE: 11/18/2016 FAMILY PHYSICIAN: Homero Murray MD ATTENDING PHYSICIAN: Antonio Fink Gastroenterology evaluation agreed with diuretic management. He will need further workup with a liver biopsy. The patient last had taken his Xarelto on Tuesday. Most recently, approximately a week prior, his primary care physician had told him to cut his Xarelto dosing in half, which he had been doing. Verification by pharmacy literature says that this pill should not be cut however can be crushed as long as it is administered within 4 hours. Regardless, the Xarelto was placed on hold, Cardiology agreed as long as the patient remained in sinus rhythm to hold in anticipation of a liver biopsy, which will require at least 5 days. This is to rule out hemochromatosis as the patient has a previous history of high ferritin. PAF was managed with sotalol. The patient did not have any abnormal rhythms or rate changes during his stay. Cardiology did follow along. The patient has significant risk factors for sleep apnea and is currently on nocturnal O2 supplementation and will require outpatient followup for sleep study as soon as possible. His nutritional consultation and dietary education was given for high protein, low salt diet with an 1800 mL fluid restriction. The patient was also given extensive congestive heart failure information and appropriate wound care for his lower extremities in regard to his Unna boot care. His weight upon admission was 277 pounds down to 270 at time of dismissal. Pertinent lab findings showed most recent CBC on 11/18/2016, white blood cell count 9.9, hemoglobin of 10.9, hematocrit of 31.1, and platelet count 228. Chemistry panel showed a glucose of 103, BUN 18, creatinine 1.0, sodium 137, potassium 3.2, variable between 3.2 and 3.8 during his stay, chloride 101, CO2 of 27, calcium 8.7, AST of 107, ALT 41, alk phos 145, and a total bilirubin between 2.8 and 3.3, this has been his baseline as reported. TSH was 10.40. His radiologic imaging shows an abdominal ultrasound not showing any ascites. There was gallbladder sludge with no evidence of gallstones or acute cholecystitis. He had a nonobstructing 1.4 left renal stone, residual splenic tissue in the left upper quadrant. CT abdomen and pelvis showed a small amount of free abdominal fluid and small bilateral pleural effusion with overlying consolidation. CONSULTING PROVIDERS: 1. Dr. Roca, Gastroenterology. 2. Tor Machado and Dr. Sabrina Cortez of Cardiology. DISCHARGE MEDICATIONS: PATIENT'S NAME: LAMIN MUÑOZ [facility] AGE: 61 Y [address] ROOM: [place] [address] LOC[place]: [facility] [place] DATE: 11/15/2016 Discharge Summary DISCHARGE DATE: 11/18/2016 FAMILY PHYSICIAN: Homero Murray MD ATTENDING PHYSICIAN: Antonio Fink 1. Cardizem 120 mg p.o. everyday. 2. Folic acid 1 mg p.o. everyday. 3. Lasix 40 mg p.o. twice daily as a dosage change. 4. Levothyroxine 50 mcg p.o. every morning at 0700 hours, new medication. 5. Protonix 40 mg p.o. every night at bedtime. 6. Potassium chloride 20 mEq p.o. everyday, new medication. 7. Sotalol 80 mg p.o. twice daily. 8. Aldactone 100 mg p.o. everyday, dosage change. 9. Thiamine vitamin B1 100 mg p.o. everyday. 10. Xarelto to be held until after Interventional Radiology, post-liver biopsy, scheduled for 11/22/2016, to resume once okay by primary care doctor after biopsy. DISCHARGE INSTRUCTIONS: The patient will be discharged to home. He was given extensive education on high-protein, low-salt diet, and an 1800 mL fluid restriction. He is recommended to weigh his self on a daily basis and if he grades greater than 3 pounds in a 24-hour period to take additional Lasix 40 mg orally x1 and call his primary care provider. His activity is as tolerated. He is to continue with the wound care recommendations of the Neo boots and have a followup for a skin check and evaluation on Tuesday after his liver biopsy. Liver biopsy is scheduled for 2 o'clock at the [facility] on Tuesday. He has reported to me that he would like to change primary care doctors and because of specialist that he already sees in [place] he feels it would be appropriate to establish care with Internal Medicine here at [facility]. I have talked to Dr. Levine and he has accepted him into his care and will see on Tuesday at 8:20 a.m. with a followup CMS. He also require follow up with Dr. Cortez in either [place] or [place] or in [place] within 2 weeks. Their recommendations are to call for upon discharge for a sleep study right away. Again, the patient was given extensive education by all providers, nursing, and concessions manager. The patient and spouse stated complete understanding of the outlined detailed followup and importance of compliance. The patient again reassured me at discharge that he has not been drinking alcohol and does not plan to do so. He understands the ramifications and complications if he does proceed with any alcohol ingestion. He also understands the importance of staying off his Xarelto for anticipated liver biopsy. All questions were answered with statements of satisfaction and direct coordination of care was 45 minutes alining followup visits and coordinating with a new primary care physician, Gastroenterology Services, and Cardiology Services. Thank you for allowing us to participate in the care of this patient while at [facility]. PATIENT'S NAME: LAMIN MUÑOZ [facility] AGE: 61 Y [address] ROOM: [place] [address] [place]: [facility] [place] DATE: 11/15/2016 Discharge Summary DISCHARGE DATE: 11/18/2016 FAMILY PHYSICIAN: Homero Murray MD ATTENDING PHYSICIAN: Antonio Fink Javon BALDWIN APRN, APRN FOR MD RENETTA TOBIN/paul /[id number] CC: MD Avi Perales MD Atam Mehdiratta MD d: t: 11/19/16 0240, DISCHARGE SUMMARY
[~2016-11-15 17:30] MED LIST: ASPIRIN325 MG PO; BETAPACE (GENER80 MG PO; CARDIZEM CD (T120 MG PO; FOLIC ACID1 MG PO; KEFLEX500 MG PO; LASIX40 MG PO; PROTONIX40 MG PO; THIAMINE HCL100 MG PO; XARELTO20 MG PO; ZOCOR40 MG PO
[2016-11-16 04:42] LABS: BASOPHIL # 0.1 K/uL (0.0-0.2); BASOPHIL % 1.1 %; EOSINOPHIL # 0.2 K/uL (0.0-0.5); EOSINOPHIL % 2.5 %; HEMATOCRIT 30.2 % (37.0-53.0); HEMOGLOBIN 10.2 g/dL (11.0-16.0); IMMATURE GRANULOCYTE % 0.3 %; LYMPHOCYTE # 2.3 K/uL (0.8-4.0); MCH 35.8 pg (27.0-34.0); MCHC 33.8 gm/dL (32.0-36.5); MONOCYTE # 1.2 K/uL (0.0-1.0); MONOCYTE % 12.1 %; MPV 10.8 fl (9.4-12.4); NEUTROPHIL # (ANC) 5.8 K/uL (1.4-9.0); NRBC % 0 /100WBC (0-0.00); PLATELET COUNT 205 K/uL (150-450); RBC 2.85 M/uL (3.50-5.50); RDW-CV 16.5 % (11.9-14.6); WBC 9.7 K/uL (4.0-11.0)
[2016-11-16 05:00] LABS: ALBUMIN 2.6 gm/dL (3.5-5.0); BLOOD UREA NITROGEN 15 mg/dL (6-24); CALCIUM 8.4 mg/dL (8.5-10.5); CHLORIDE 103 mMol/L (96-110); CO2 26 mMol/L (22-32); CREATININE 0.9 mg/dL (0.6-1.3); SODIUM 137 mMol/L (135-145)
[2016-11-16 05:05] LABS: ANION GAP 11.8 (10.0-19.0)
[2016-11-16 05:06] LABS: POTASSIUM 3.8 mMol/L (3.7-5.1)
[2016-11-16] MEDS ORDERED: ALDACTONE100 MG PO (15:07)
[2016-11-16 17:03] LABS: BASOPHIL # 0.1 K/uL (0.0-0.2); BASOPHIL % 1.1 %; EOSINOPHIL # 0.2 K/uL (0.0-0.5); EOSINOPHIL % 2.4 %; HEMATOCRIT 31.8 % (37.0-53.0); IMMATURE GRANULOCYTE % 0.3 %; LYMPHOCYTE # 1.9 K/uL (0.8-4.0); LYMPHOCYTE % 19.3 %; MCH 36.7 pg (27.0-34.0); MCHC 34.6 gm/dL (32.0-36.5); MONOCYTE # 1.1 K/uL (0.0-1.0); MONOCYTE % 11.3 %; MPV 10.2 fl (9.4-12.4); NEUTROPHIL # (ANC) 6.5 K/uL (1.4-9.0); NEUTROPHIL % 65.6 %; NRBC % 0 /100WBC (0-0.00); PLATELET COUNT 237 K/uL (150-450); RDW-CV 16.4 % (11.9-14.6); WBC 9.9 K/uL (4.0-11.0)
[2016-11-16 17:24] LABS: ALBUMIN 2.4 gm/dL (3.5-5.0); CALCIUM 8.6 mg/dL (8.5-10.5); TOTAL PROTEIN 7.7 g/dL (6.0-8.4)
[2016-11-16 17:27] LABS: ANION GAP 13.4 (10.0-19.0); POTASSIUM 3.4 mMol/L (3.7-5.1); TOTAL BILIRUBIN 2.8 mg/dL (0.0-1.5)
[2016-11-17 05:43] LABS: ALBUMIN 2.7 gm/dL (3.5-5.0); ANION GAP 11.5 (10.0-19.0); CALCIUM 8.8 mg/dL (8.5-10.5); POTASSIUM 3.5 mMol/L (3.7-5.1); TOTAL PROTEIN 8.2 g/dL (6.0-8.4)
[2016-11-18 05:23] LABS: BASOPHIL # 0.1 K/uL (0.0-0.2); BASOPHIL % 1.3 %; EOSINOPHIL # 0.3 K/uL (0.0-0.5); EOSINOPHIL % 3.1 %; HEMATOCRIT 31.1 % (37.0-53.0); HEMOGLOBIN 10.9 g/dL (11.0-16.0); IMMATURE GRANULOCYTE % 0.2 %; LYMPHOCYTE # 2.5 K/uL (0.8-4.0); LYMPHOCYTE % 24.7 %; MCH 36.7 pg (27.0-34.0); MCV 104.7 fl (83.0-98.0); MONOCYTE # 1.2 K/uL (0.0-1.0); MONOCYTE % 12.2 %; NEUTROPHIL # (ANC) 5.8 K/uL (1.4-9.0); NEUTROPHIL % 58.5 %; NRBC % 0 /100WBC (0-0.00); PLATELET COUNT 228 K/uL (150-450); RBC 2.97 M/uL (3.50-5.50); RDW-CV 16.1 % (11.9-14.6); WBC 9.9 K/uL (4.0-11.0)
[2016-11-18 05:38] LABS: ALBUMIN 2.6 gm/dL (3.5-5.0); ANION GAP 12.2 (10.0-19.0); CALCIUM 8.7 mg/dL (8.5-10.5); POTASSIUM 3.2 mMol/L (3.7-5.1); TOTAL BILIRUBIN 3.3 mg/dL (0.0-1.5); TOTAL PROTEIN 7.8 g/dL (6.0-8.4)
[2016-11-18] MEDS ORDERED: LEVOTHROID (SY50 MCG PO (15:59)
[2016-11-18] MEDS ORDERED: LUTEIN20 M1 PO (16:13)
[2016-11-18] MEDS ORDERED: DEMADEX20 MG PO (16:13)
[2016-12-01] MEDS ORDERED: LASIX40 MG PO (10:05)
[2016-12-31] MEDS ORDERED: XIFAXAN550 MG PO (16:00)
[2016-12-31] MEDS ORDERED: K-TAB ER20 MEQ PO (16:01)
[2016-12-31] MEDS ORDERED: XARELTO20 MG PO (16:01)
[2016-12-31] MEDS ORDERED: ZOCOR40 MG PO (16:03)
[2017-01-04] MEDS ORDERED: FEOSOL325 MG PO (10:40)
== END 2016-11-18 17:48 | disposition disaster alternative care site (69) | DRG 432 ==
LOC: GMSU 18:11
PROVIDERS: Hospitalist; Nurse Practitioner Family; ADMIT Family Medicine
DX: K70.31 Alcoholic cirrhosis of liver with ascites (principal); I50.33 Acute on chronic diastolic (congestive) heart failure; E44.0 Moderate protein-calorie malnutrition; G47.34 Idiopathic sleep related nonobstructive alveolar hypoventilation; I27.2 Other secondary pulmonary hypertension; I48.0 Paroxysmal atrial fibrillation; E03.9 Hypothyroidism, unspecified; F32.9 Major depressive disorder, single episode, unspecified; E78.5 Hyperlipidemia, unspecified; E87.6 Hypokalemia; F10.20 Alcohol dependence, uncomplicated; Z87.898 Personal history of other specified conditions; Z87.891 Personal history of nicotine dependence; I87.2 Venous insufficiency (chronic) (peripheral); Z68.35 Body mass index [BMI] 35.0-35.9, adult; Z79.01 Long term (current) use of anticoagulants

== ENCOUNTER → 2016-11-22 | Outpatient (CLI) | payer BC ==
[~2016-11-22] MED LIST changes: +ALDACTONE100 MG PO; +DEMADEX20 MG PO; +FEOSOL325 MG PO; +K-TAB ER20 MEQ PO; +LEVOTHROID (SY50 MCG PO; +LUTEIN20 M1 PO; +XIFAXAN550 MG PO
== END | disposition disaster alternative care site (69) ==
LOC: GLAB 13:58 → GOPP 14:30
DX: K74.60 Unspecified cirrhosis of liver (principal); K76.0 Fatty (change of) liver, not elsewhere classified
CPT/HCPCS: J2001; J7030

== ENCOUNTER → 2017-01-04 | Day surgery (SDC) | payer BC ==
[~2017-01-04] VITALS: Ht 188 cm; Wt 112.4 kg
--- NOTE | ~2017-01-04 | OR ---
PATIENT'S NAME: LAMIN MUÑOZ [facility] AGE: 61 Y [address] ROOM: [place] [address] LOCATION: [facility] – [place] ADMIT DATE: 01/04/2017 OR/Procedure Report DISCHARGE DATE: FAMILY PHYSICIAN: ADONAY JACKSON MD ATTENDING PHYSICIAN: Chriss Jason SURGEON: Chriss Jason MD GRINDER SET UP OPERATOR JIG: DATE OF PROCEDURE: 01/04/2017 PREOPERATIVE DIAGNOSES: 1. Gross hematuria. 2. Left nephrolithiasis. 3. History of tobacco abuse. 4. History of chronic liver disease secondary to alcohol abuse. 5. Chronic anticoagulation. POSTOPERATIVE DIAGNOSES: 1. Gross hematuria. 2. Left nephrolithiasis. 3. History of tobacco abuse. 4. History of chronic liver disease secondary to alcohol abuse. 5. Chronic anticoagulation. 6. Benign prostatic hyperplasia with bladder outlet obstruction. PROCEDURE: 1. Cystoscopy with left ureteral stent placement. 2. Left ESWL. ANESTHESIA: Sedation. INDICATION: This is a 61-year-old gentleman referred by Dr. Jackson with gross hematuria. I had seen him in the office. We discussed evaluation. He has a 30-to 21-bzjo-kyds history of smoking. He quit smoking a few years ago. He has chronic liver disease. He is on chronic Xarelto therapy. Upon further evaluation at that time, we found that he had a CT scan of the abdomen and pelvis earlier this summer. I reviewed that. There were no obvious upper tract mass lesions. However, he had a 7-mm stone on the left side. That in conjunction with his Xarelto may lead to his bleeding. He also has a very thickened bladder wall. With a smoking history, we need to evaluate his lower urinary tract. We had made arrangements to hold his Xarelto and proceed with the evaluation of his bladder as well as elective treatment of his stone. He had some pain symptoms at the time of his CT scan. I opted to stent this 7 mm stone. PATIENT'S NAME: LAMIN MUÑOZ [facility] AGE: 61 Y [address] ROOM: [place] [address] LOCATION: [facility] – [place] ADMIT DATE: 01/04/2017 OR/Procedure Report DISCHARGE DATE: FAMILY PHYSICIAN: ADONAY JACKSON MD ATTENDING PHYSICIAN: Jason,Chriss F DESCRIPTION OF PROCEDURE: Having obtained his informed consent, the patient was taken first to the cystoscopy suite. He was prepped and draped sterilely and in lithotomy position. IV sedation was administered. The 21-Hebrew cystoscope was assembled and guided into the urethra. The course of the urethra was unremarkable back to prostate. He has trilobar hypertrophy. We have to look up and over his middle lobe. Moving into the bladder, we find changes consistent with chronic outlet obstruction. He has cellule and diverticula formation as well as trabeculation. Careful examination of bladder using the 30- and 70-degree lenses reveal no mucosal lesions. Preliminary survey reveals the stone in the area of the left renal shadow. He also has a phlebolith and vascular calcifications in the pelvis. I avoided contrast in anticipation of lithotripsy. A guidewire was passed up the left side. The curls in the renal pelvis. Over that guidewire, I passed a 4.8 multi-length stent. We have a nice level of placement cystoscopically and fluoroscopically. The Dangler string is left in place. The bladder was drained. The patient is moved to the lithotripsy suite. He was placed on the table. The stone was brought into the second focal point, ellipsoid, and fragmentation was begun. We started at 14 kV and worked up to a maximum of 22 kV. With his risk factors for bleeding, I wanted to minimize the shock usage. Fortunately, the stone appeared to fragment nicely. After 2200 impulses, there were no visible fragments remaining. The patient tolerated all this well. BLOOD LOSS: Negligible. SPECIMENS: No specimens were sent. The patient returned to the outpatient recovery awake and in stable condition. CHRISS JASON MD [facility]/olivial /[id number] CC: Avi Cortez MD PATIENT'S NAME: LAMIN MUÑOZ [facility] AGE: 61 Y [address] ROOM: [place] [address] LOCATION: [facility] – [place] ADMIT DATE: 01/04/2017 OR/Procedure Report DISCHARGE DATE: FAMILY PHYSICIAN: ADONAY JACKSON MD ATTENDING PHYSICIAN: Chriss Jason MD Atam Mehdiratta, MD d: t: 01/04/17 1706, OPERATIVE SUMMARY
[2017-01-04 11:57] LABS: INR - (THERAPEUTIC) 1.14 (0.92-1.07)
== END ==
LOC: GPOC 12-31 15:00 → GSDC 09:51 → GPOC 15:00
PROVIDERS: Urology
PROC: 0T778DZ Dilation of Left Ureter with Intraluminal Device, Via Natural or Artificial Opening Endoscopic (ICD-10-PCS; principal; 2017-01-04)
PROC: 0TF4XZZ Fragmentation in Left Kidney Pelvis, External Approach (ICD-10-PCS; 2017-01-04)
DX: N20.0 Calculus of kidney (principal); K76.9 Liver disease, unspecified; F10.10 Alcohol abuse, uncomplicated; N40.1 Benign prostatic hyperplasia with lower urinary tract symptoms; N13.8 Other obstructive and reflux uropathy; Z79.01 Long term (current) use of anticoagulants; Z87.891 Personal history of nicotine dependence; E66.9 Obesity, unspecified; M17.9 Osteoarthritis of knee, unspecified; F32.9 Major depressive disorder, single episode, unspecified; K70.31 Alcoholic cirrhosis of liver with ascites; I48.0 Paroxysmal atrial fibrillation; E03.9 Hypothyroidism, unspecified; Z90.89 Acquired absence of other organs; Z98.890 Other specified postprocedural states
CPT/HCPCS: C1769; C2617; J1956; J2001; J2765; J7120